=== PATIENT | female | born 1985 | race Caucasian/White ===

== ENCOUNTER → 2017-01-17 | Outpatient (CLI) | payer BC ==
[~2017-01-17] MED LIST: DIPH1TAB PO; MONT1TAB3 PO; MULT-506 PO; PRED20TA PO; SPIR25TA PO
[2017-01-17 11:14] LABS: BLOOD UREA NITROGEN 6 mg/dl (7-18); CARBON DIOXIDE 28 mmol/L (21-32); CHLORIDE 106 mmol/L (98-107); CREATININE 0.78 mg/dl (0.60-1.20); GLUCOSE 86 mg/dl (70-99); POTASSIUM 3.9 mmol/L (3.5-5.1); SODIUM 140 mmol/L (136-145)
== END | disposition home or self-care (01) ==
LOC: C.LAB 09:58
PROVIDERS: ATTEND Nurse Practitioner Family
DX: L70.9 Acne, unspecified (principal); Z51.81 Encounter for therapeutic drug level monitoring

== ENCOUNTER 2017-02-19 21:14 | Emergency (ER) | payer BC ==
[~2017-02-19] VITALS: Ht 170.2 cm; Wt 69.3 kg
[2017-02-19 21:16] VITALS: TEMP 36.6; Ht 170.2 cm; Wt 69.3 kg
[2017-02-19] MEDS ORDERED: RANITIDINE HCL 50 MG/100 ML D5W IV STA (21:31)
[2017-02-19] MEDS ORDERED: DiphenhydrAMINE HCL 50 MG/ML VIAL IV STA (21:31)
[2017-02-19] MEDS ORDERED: METHYLPREDNISOLONE 125 MG VIAL IV STA (21:31)
[2017-02-19] MEDS ORDERED: ONDANSETRON INJ 2 MG/ML 2 ML VIAL IV STA (21:36)
[2017-02-19 21:48] LABS: HEMATOCRIT 44.9 % (37-47); MEAN CELL VOLUME 94.3 fL (80-100); MEAN PLATELET VOLUME 11.2 fL (7.4-10.4); PLATELET COUNT 254 K/uL (130-400); RED BLOOD COUNT 4.76 M/uL (4.2-5.4); WHITE BLOOD COUNT 7.14 K/uL (4.8-10.8)
[2017-02-19 22:11] LABS: CREATININE 0.89 mg/dl (0.60-1.20); POTASSIUM 4.1 mmol/L (3.5-5.1)
[2017-02-19] MEDS ORDERED: MULT-506 PO (22:16)
[2017-02-19] MEDS ORDERED: MONT1TAB3 PO (22:16)
[2017-02-19] MEDS ORDERED: SPIR25TA PO (22:16)
[2017-02-19] MEDS ORDERED: DIPH1TAB PO (22:17)
[2017-02-19] MEDS ORDERED: PRED20TA PO (22:40)
--- NOTE | 2017-02-19 22:41 | EMERGENCY ROOM VISIT NOTE ---
History Report prepared by Terry: Usman Bowie Under the Supervision of: Dr. Rafael Gaitan D.O. First contact with patient: 21:31 Chief Complaint: ALLERGIC REACTION Stated Complaint: ALLERGIC RXN TO SUNFLOWER SEEDS History of Present Illness The patient is a 31 year old female who presents to the Emergency Room with complaints of an allergic reaction that began 3 hours ago. At this time, she ate a veggie burger that, at the time, she did not know had sunflower seeds in it. Usually, when she eats sunflower seeds, her mouth just gets itchy. This time however, her mouth became itchy and swollen, she became nauseated, and she developed hives on her body. She denies any difficulty breathing. She took 2 Benadryl PO prior to arrival. She denies any medical problems. Source of History: patient Onset: 3 hours ago Position: other (global) Symptom Intensity: moderate Quality: other (Allergic reaction) Timing: constant Associated Symptoms: + nausea, No SOB Note: She has developed hives on her body and her mouth is swollen. Review of Systems See HPI for pertinent positives & negatives. A total of 10 systems reviewed and were otherwise negative. Past Medical & Surgical Medical Problems: (1) No Known Active Medical Problems Family History Diabetes mellitus Social History Smoking Status: Never Smoker Smokeless Tobacco Use: No Alcohol Use: occasionally Drug Use: none Marital Status: single Housing Status: lives alone Occupation Status: employed Current/Historical Medications Scheduled Diphenhydramine Hcl (Benadryl Allergy), 50 MG PO UD Montelukast Sodium (Singulair), 10 MG PO HS Multivitamin (Multivitamin), 1 TAB PO QAM Prednisone (Prednisone), 2 TAB PO DAILY Spironolactone (Aldactone), 25 MG PO QAM Allergies Coded Allergies: [place] Seed (Unverified Allergy, Intermediate, HIVES/ITCHY, 02/19/17) Amoxicillin (Verified Allergy, Unknown, yasir richard syndrom, 02/19/17) Dairy (Verified Allergy, Unknown, upset stomach, 02/19/17) Sulfa Antibiotics (Verified Allergy, Unknown, hives, 02/19/17) Physical Exam Vital Signs Date Time Temp Pulse Resp B/P (MAP) Pulse Ox O2 Delivery O2 Flow Rate FiO2 02/19/17 22:53 45 16 106/62 98 Room Air 02/19/17 22:09 47 16 103/65 95 Room Air 02/19/17 22:00 97 Room Air 02/19/17 21:30 70 02/19/17 21:16 36.6 81 18 128/88 95 Room Air Physical Exam CONSTITUTIONAL/VITAL SIGNS: Reviewed / noted above. GENERAL: Non-toxic in appearance. INTEGUMENTARY: Warm, dry, and Panacea. HEAD: Normocephalic. EYES: without scleral icterus or trauma. ENT/OROPHARYNX: clear and moist. No obvious mucosal edema or airway restriction. LYMPHADENOPATHY/NECK: Is supple without lymphadenopathy or meningismus. RESPIRATORY: Lungs clear and equal. CARDIOVASCULAR: Regular rate and rhythm. GI/ABDOMEN: Soft and nontender. No organomegaly or pulsatile mass. No rebound or guarding. Normal bowel sounds. EXTREMITIES: Warm and well perfused. Hyperemia of skin diffusely. BACK: No CVA tenderness. NEUROLOGICAL: Intact without focal deficits. PSYCHIATRIC: normal affect. MUSCULOSKELETAL: Normally developed with good muscle tone. Medical Decision & Procedures Laboratory Results 02/19/17 21:33 02/19/17 21:33 Test 02/19/17 21:33 Red Blood Count 4.76 M/uL (4.2-5.4) Mean Corpuscular Volume 94.3 fL (80-100) Mean Corpuscular Hemoglobin 33.0 pg (25-34) Mean Corpuscular Hemoglobin Concent 35.0 g/dl (32-36) RDW Standard Deviation 45.2 fL (36.4-46.3) RDW Coefficient of Variation 13.1 % (11.5-14.5) Mean Platelet Volume 11.2 fL (7.4-10.4) Anion Gap 5.0 mmol/L (3-11) Est Creatinine Clear Calc Drug Dose 90.7 ml/min Estimated GFR () 101.5 Estimated GFR (Non- 87.6 BUN/Creatinine Ratio 8.0 (10-20) Calcium Level 9.0 mg/dl (8.5-10.1) Chemistry Specimen Hemolysis Laboratory results as stated above per my review. Medications Administered Medications (Trade) Dose Ordered Sig/Mallory Route Start Time Stop Time Status Last Admin Dose Admin Ranitidine HCl (zANTac IV) 50 mg NOW STAT IV 02/19/17 21:31 02/19/17 21:32 DC 02/19/17 22:00 50 MG Methylprednisolone Sodium Succinate (Solu-Medrol IV) 125 mg NOW STAT IV 02/19/17 21:31 02/19/17 21:32 DC 02/19/17 22:00 125 MG Diphenhydramine HCl (Benadryl Inj) 25 mg NOW STAT IV 02/19/17 21:31 02/19/17 21:32 DC 02/19/17 22:00 25 MG Ondansetron HCl (Zofran Inj) 4 mg NOW STAT IV 02/19/17 21:36 02/19/17 21:37 DC 02/19/17 22:00 4 MG ED Course 2130: Previous medical records were reviewed. The patient was evaluated in room B4. A complete history and physical examination was performed. Ordered Benadryl Inj 25 mg IV, Solu-Medrol IV 125 mg IV, Ranitidine HCl 50 mg IV 2135: Ordered Zofran Inj 4 mg IV 2242: On reevaluation, the patient is resting. I discussed the results and findings with the patient. She verbalized agreement of the treatment plan. She was discharged home. Medical Decision Differential diagnosis: Etiologies such as allergic reaction, anaphylaxis, urticaria, Powell-Richard syndrome, toxic epidermal necrolysis, erythema multiforme, cellulitis, as well as others were entertained. This is a 31-year-old female who presents to the ED with a chief complaint of allergic reaction. The patient developed the symptoms shortly after eating a veggie burger that had sunflower seeds in it. The patient does have some problems with some pharmacies in the past. She reports some itchiness as well as hyperemia to her skin. She also feels like her throat is little swollen. Her exam is noted above. There is hyperemia diffusely of the skin. There is no obvious airway issues. The patient was treated with IV Benadryl as well as IV site Medrol and Zantac IV. The patient on reassessment is feeling much better. Her skin symptoms have completely resolved. She has no airway issues. She is felt to be stable for discharge. Discharged on Benadryl and prednisone. Medication Reconcilliation Current Medication List: was personally reviewed by me Blood Pressure Screening Patient's blood pressure: Normal blood pressure Blood pressure disposition: Did not require urgent referral Impression Primary Impression: Allergic reaction Scribe Attestation The scribe's documentation has been prepared under my direction and personally reviewed by me in its entirety. I confirm that the note above accurately reflects all work, treatment, procedures, and medical decision making performed by me. Departure Information Dispostion Home / Self-Care Prescriptions Prednisone (Prednisone) 20 Mg Tab 2 TAB PO DAILY for 4 Days, #8 TAB Prov: Rafael Gaitan D.O. 02/19/17 Referrals Diamond Song, C.R.N.P. (PCP) Forms HOME CARE DOCUMENTATION FORM, IMPORTANT VISIT INFORMATION Patient Instructions ED Allergic React Food, My [facility] Additional Instructions Benadryl 25 mg every 6-8 hours for the next 3 days. Caution as this may cause drowsiness. Prednisone as prescribed. Return for any worsening or new concerns.
[2017-02-19 22:53] VITALS: BP 106/62; PULSE 45; O2SAT 98
== END 2017-02-19 23:03 | disposition home or self-care (01) ==
LOC: C.EDB 21:15
DX: T78.40XA Allergy, unspecified, initial encounter (principal); X58.XXXA Exposure to other specified factors, initial encounter; Z83.3 Family history of diabetes mellitus

== ENCOUNTER → 2017-03-01 | Outpatient (CLI) | payer BC ==
[~2017-03-01] MED LIST changes: -PRED20TA PO
--- NOTE | 2017-03-01 10:33 | DIAGNOSTIC IMAGING REPORT ---
ULTRASOUND OF THE PELVIS CLINICAL HISTORY: Dysfunctional uterine bleeding. COMPARISON STUDY: No priors. TECHNIQUE: Real-time, grayscale, and color flow sonography of the pelvis is performed both transabdominally and endovaginally. Images are reviewed in the transverse and longitudinal planes. FINDINGS: Uterus: The uterus is normal in size and echotexture, measuring 7.5 x 3.9 x 4.5 cm. Nabothian cysts are noted in the cervix. Endometrium: The endometrium is normal in appearance, and the endometrial stripe is normal in thickness measuring up to 0.5 cm. Ovaries: The ovaries are normal in size and morphology. The right ovary measures 3.7 x 2.0 x 2.3 cm and the left ovary measures 4.1 x 2.5 x 3.6 cm. Numerous tiny ovarian follicles are identified. Normal Doppler waveforms are shown within both ovaries. Pelvis: There is trace free fluid in the cul-de-sac. No concerning adnexal lesion is seen. IMPRESSION: 1. No acute sonographic abnormality is seen in the pelvis. 2. There is trace free fluid in the cul-de-sac, likely within physiologic limits. Electronically signed by: Jonathan Boyd M.D. 03/01/2017 10:32 AM Dictated Date/Time: 03/01/2017 10:30 AM
== END | disposition home or self-care (01) ==
LOC: C.ULTRBC 09:40
PROVIDERS: ATTEND Nurse Practitioner Family
DX: N93.8 Other specified abnormal uterine and vaginal bleeding (principal)

== ENCOUNTER → 2017-07-04 | Outpatient (CLI) | payer BC ==
[~2017-07-04] MED LIST changes: -DIPH1TAB PO; +DIPH1TAB87 PO
--- NOTE | 2017-07-04 13:52 | DIAGNOSTIC IMAGING REPORT ---
ABDOMEN FOR HERNIA CLINICAL HISTORY: 31 years-old Female presenting with RIGHT LOWER QUADRANT PAIN, history of hernia repair. TECHNIQUE: Real-time grayscale ultrasound imaging of the right inguinal region was performed for a focal evaluation for hernia. Color Doppler was also performed. COMPARISON: None. FINDINGS: No sonographic evidence of inguinal hernia. No inguinal fluid collection or lymphadenopathy. IMPRESSION: 1. No evidence of hernia. Electronically signed by: Dariel Bella M.D. 07/04/2017 1:51 PM Dictated Date/Time: 07/04/2017 1:50 PM
== END | disposition home or self-care (01) ==
LOC: C.ULTR 13:21
PROVIDERS: ATTEND Nurse Practitioner Family
DX: R10.31 Right lower quadrant pain (principal)